=== PATIENT | male | born 1950 | race Caucasian/White ===

== ENCOUNTER 2016-09-25 06:57 | Day surgery (SDC) | payer MEDICARE, MEDICAID ==
[2016-09-25 07:35] VITALS: BMI 29.0
[2016-09-25] MEDS ORDERED: Propofol 10 mg/ml Inj (20 ML) ONE (09:00)
--- NOTE | 2016-09-25 09:08 | CP.SDSHP ---
Same Day Surgery H & P - History Proposed Procedure: EGD/ COLONSCOPY Pre-Op Diagnosis: SEE NOTES - Previous Medical/Surgical History Cardiac: Hypertension Endocrine/Metabolic: Other Neuro: Seizure Disorder, Other Misc: Other Previous Surgical History: COLON CA / PART. COLON RESECTION - Allergies Allergies: Allergies MDX Penicillin [Penicillin] Adverse Reaction (Verified 09/14/14 07:47) SHORTNESS OF BREATH - Physical Exam General Appearance: N Vital Signs: Vital Signs 09/25/16 07:55 Temperature 97 F L Pulse Rate 69 Respiratory 16 Rate Blood Pressure 112/72 O2 Sat by Pulse 97 Oximetry Mental Status: Alert & Oriented x3 Neuro: Other Heart: Other Lungs: WNL GI: Other - {Optional Preform as Required} Breast: WNL Abdomen: Other Rectal: Other Integument: WNL : WNL Ortho: WNL ENT: WNL - Impression Pt. Evaluated Today:Candidate for Anesthesia & Procedure: Yes - Date & Time Time: 09:08 Short Stay Discharge - Short Stay Discharge Admitting Diagnosis/Reason for Visit: P/H COLON CA Disposition: HOME/ ROUTINE
[2016-09-25] MEDS ORDERED: Midazolam 2 MG/2 ML VIAL ONE (09:12)
[2016-09-25] MEDS ORDERED: Pantoprazole 40 mg EC Tab PO ONE (09:15)
[2016-09-25] MEDS ORDERED: Lactated Ringer's 500 ML IV SCH (09:30)
[2016-09-25 10:13] VITALS: TEMP 98.1
[2016-09-25 11:44] VITALS: BP 122/79; PULSE 59; RESP 13; O2SAT 98
== END 2016-09-25 10:40 | disposition home or self-care (01) ==
LOC: C.ENDO 06:57
PROVIDERS: ATTEND Specialist
DX: K57.90 Diverticulosis of intestine, part unspecified, without perforation or abscess without bleeding (principal); Z85.038 Personal history of other malignant neoplasm of large intestine; K29.60 Other gastritis without bleeding; K44.9 Diaphragmatic hernia without obstruction or gangrene; K28.9 Gastrojejunal ulcer, unspecified as acute or chronic, without hemorrhage or perforation; K64.8 Other hemorrhoids; B96.81 Helicobacter pylori [H. pylori] as the cause of diseases classified elsewhere
CPT/HCPCS: 43239; 45380; 88305; 88342; J2250; J2704; J3010; J7120

== ENCOUNTER 2016-11-23 20:03 | Emergency (ER) | payer MEDICARE, MEDICAID ==
[2016-11-23 20:03] VITALS: BMI 29.0
[2016-11-23 20:46] VITALS: BP 142/90; RESP 18
--- NOTE | 2016-11-23 20:57 | C.PDOC ---
History Of Present Illness 66 year old male who presents to the ER via EMS after he had typical seizure @ home with family upstairs. Son and pt's @ bedside (eventually) argumentative and confrontational and letigious with ALL staff members, declining eval for typical seizure @ home. Denies physical complaints at this time. Time Seen by Provider: 11/23/16 20:40 Chief Complaint (Nursing): Seizure History Per: Patient History/Exam Limitations: no limitations Recent Seizure Activity Began: Just Before Arrival Number Of Seizures: One Quality Of Seizure: Generalized Post-ictal Period: No Recent travel outside of the [place]: No Past Medical History Reviewed: Historical Data, Nursing Documentation, Vital Signs Vital Signs: Last Vital Signs Temp 97.2 F L 11/23/16 20:39 Pulse 85 11/23/16 20:39 Resp 18 11/23/16 20:39 BP 142/90 11/23/16 20:39 Pulse Ox 95 11/23/16 21:02 - Medical History PMH: Depression, HTN, Hypercholesterolemia, Seizures (LAST SEIZURE 09/23/16) Surgical History: Cholecystectomy, Coronary Stent - [facility] Procedures CLOSED ENDOSCOPIC BIOPSY OF LARGE INTESTINE (09/14/14) Family History: States: Unknown Family Hx - Social History Hx Alcohol Use: No Hx Substance Use: No - Immunization History Hx Tetanus Toxoid Vaccination: No Hx Influenza Vaccination: No Hx Pneumococcal Vaccination: No Review Of Systems Constitutional: Negative for: Fever, Chills Gastrointestinal: Negative for: Nausea, Vomiting, Diarrhea Genitourinary: Negative for: Incontinence Neurological: Positive for: Seizures. Negative for: Weakness, Numbness Physical Exam - Physical Exam Appears: Non-toxic, Other (Awake, Alert) Skin: Normal Color, Warm, Dry Head: Atraumatic, Normacephalic Oral Mucosa: Moist Neck: Normal, Supple Chest: Symmetrical, No Tenderness Cardiovascular: Rhythm Regular, No Murmur Respiratory: Normal Breath Sounds, No Rales, No Rhonchi, No Wheezing Gastrointestinal/Abdominal: Soft, No Tenderness Neurological/Psych: Oriented x3, Normal Speech, Normal Cognition, Other (No focal deficits) ED Course And Treatment O2 Sat by Pulse Oximetry: 95 (Room air) Pulse Ox Interpretation: Normal Medical Decision Making Medical Decision Making: typical seizure declines eval unclear why they came to ER family argumentative and confrontational with staff Disposition Doctor Will See Patient In The: Office Counseled Patient/Family Regarding: Studies Performed, Diagnosis - Disposition Referrals: [facility] [Outside] [facility] [Outside] Disposition: HOME/ ROUTINE Disposition Time: 20:57 Condition: GOOD Additional Instructions: please follow-up with your pMD as needed Instructions: Epilepsy (ED) Forms: [facility] (Setswana) - Clinical Impression Clinical Impression: Seizure - Scribe Statement The provider has reviewed the documentation as recorded by the Scribbrandt Cardenas All medical record entries made by the Scribe were at my direction and personally dictated by me. I have reviewed the chart and agree that the record accurately reflects my personal performance of the history, physical exam, medical decision making, and the department course for this patient. I have also personally directed, reviewed, and agree with the discharge instructions and disposition.
[2016-11-23 21:46] VITALS: PULSE 80; TEMP 97.1; O2SAT 98
== END 2016-11-23 21:00 | disposition home or self-care (01) ==
LOC: C.ER 20:03
DX: G40.409 Other generalized epilepsy and epileptic syndromes, not intractable, without status epilepticus (principal)